=== PATIENT | male | born 1945 | race Caucasian/White ===

== ENCOUNTER 2016-05-10 15:47 | Emergency (ER) | payer MEDICARE ==
[2016-05-10 16:04] VITALS: TEMP 98; BMI 23.7
[2016-05-10 16:46] LABS: AUTOMATED EOSINOPHIL 3.5 % (0-5); AUTOMATED LYMPH 25.6 % (17-44); AUTOMATED MONOCYTE 8.9 % (3-10); MPV 7.8 fL (7.4-10.4)
[2016-05-10 16:53] LABS: BLOOD UREA NITROGEN 25 MG/DL (9-20); CALC CORRECTED 9.9 MG/DL (8.4-10.2); CALCIUM 8.6 MG/DL (8.4-10.2); CALCULATED OSMOLALITY 268 MOs/Kg (270-290); CHLORIDE 103 mEq/L (98-107); GLUCOSE 127 mg/dL (70-99); SODIUM LEVEL 136 mEq/L (137-146); TOTAL PROTEIN 5.6 G/DL (6.3-8.2)
--- NOTE | 2016-05-10 17:50 | DIRPT ---
CLINICAL DATA: 70-year-old male with lumbar back pain since March. Difficulty walking. Initial encounter. Current history of cirrhosis. EXAM: MRI LUMBAR SPINE WITHOUT CONTRAST TECHNIQUE: Multiplanar, multisequence MR imaging of the lumbar spine was performed. No intravenous contrast was administered. COMPARISON: Chest CTA 10/11/2015. CT Abdomen and Pelvis 04/11/2014. FINDINGS: Low signal to noise on today's lumbar images despite repeated imaging attempts, this might be related to a moderate or large volume of abdominal ascites. There are large caliber para renal varices demonstrated in the visualized retroperitoneum. Normal lumbar segmentation. There is a mild compression fracture of L4 with superior endplate deformity and associated superior endplate marrow edema (series 9, image 12). This is new since 2015. No retropulsed bone or complicating features. There is a mild inferior endplate compression deformity of L2 which is new since 2015, but appears chronic without convincing marrow edema. The remaining lumbar levels appear intact. Visible sacrum intact. Visualized lower thoracic spinal cord is normal with conus medularis at L1. No lumbar spinal stenosis. Mild for age lumbar spine degeneration. There is moderate severe facet hypertrophy with trace facet joint fluid at L4-L5 and L5-S1. IMPRESSION: 1. Acute to subacute mild L4 compression fracture. No retropulsed bone or complicating features. 2. Mild chronic L2 compression fracture. 3. Largely mild for age lumbar spine degeneration with no spinal stenosis. There is moderate to severe facet arthropathy at L4-L5 and L5-S1. 4. 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 Electronically Signed By: Maria Dumont M.D. On: 05/10/2016 17:48
--- NOTE | 2016-05-10 18:51 | EDPRACDOC ---
- General Information Chief Complaint: Back Pain Stated Complaint: LOWER BACK PAIN NO RECENT INJURY Time Seen by Provider: 05/10/16 16:11 Information Source: Patient Home Medications: Home Medications Lactulose 20 gm PO DAILY 30 Days 10/11/15 Pantoprazole Sodium [Protonix] 40 mg PO DAILY #30 tab 10/11/15 Furosemide [Lasix] 40 mg PO DAILY 05/10/16 Lorazepam [Ativan] 1 mg PO BID PRN 05/10/16 Oxycodone Immediate Release [Oxycodone Immediate Release (OxyIR)] 5 - 10 mg PO Q4H PRN #30 tab 05/10/16 Propranolol HCl 20 mg PO BID 05/10/16 Spironolactone [Aldactone] 100 mg PO DAILY 05/10/16 Allergies/Adverse Reactions: Allergies Allergy/AdvReac Type Severity Reaction Status Date / Time Sulfa (Sulfonamide Allergy Hives* Verified 10/11/15 16:10 Antibiotics) - History of Present Illness Onset: ONE MONTH Pain Location: Reports: Lumbar Pain Radiates To: Reports: Buttock Pain Caused By: Reports: Bending, Spontaneous, Twisting Circumstances: Reports: Other Relevant History: Reports: Arthiritis. Denies: Abdominal aneurysm, Chronic back pain, Gallbladder disease, Pancreatitis, Pyelonephritis, Urolithiasis Pain Severity: Reports: Moderate Pain Quality: Reports: Aching, Sharp Worsened By: Reports: Movement, Twisting, Walking Associated Signs and Symptoms: Denies: Abdominal Pain, Dysuria, Hematuria, Nausea, Vomiting Other History: HISTORY OF CIRRHOSIS WITH ASCITES STATUS POST PARACENTESIS APPROXIMATELY 1 MONTH AGO. ED Past Medical History - History Reviewed Yes Nurses notes reviewed and agree except as marked - Patient Medical History GI/ History: Reports: Liver Failure (CIRRHOSIS WITH ASCITES) - Social Medical History Smoking Status: Light tobacco smoker (less than 5/day) Social History: Reports: Marijuana Use ETOH: Alcoholic Substance Abuse: None Lives With: Family Lives In: Home EDM Review of Systems - Review of Systems ROS Negative Except as Marked: Yes All systems reviewed and were negative except as marked - Physical Exam Constitutional: No apparent distress, Alert, Distress (UNCOMFORTABLE) Oriented to: Time, Person, Place Last recorded Vital Signs: Last Vital Signs Temp 98 F 05/10/16 15:57 Pulse 54 L 05/10/16 18:05 Resp 18 05/10/16 18:05 BP 130/63 05/10/16 18:05 Pulse Ox 95 05/10/16 18:05 Oxygen Pulse Oxygen Saturation 95 O2 Device Room Air Oxygen Flow Rate Fraction of Inspired Oxygen ( FIO2) - HEENT Head: Normal Eye Exam: Scleral Icterus. negative: Pale Conjunctiva Oropharynx: Normal. negative: Membranes Dry - Respiratory/Cardiovascular Respiratory: Normal - CTA Cardiovascular: Normal - GI Palpation: Fluid Wave. negative: Mass, Tense Tenderness: Non tender. negative: Guarding, Rebound, Rigidity Echevarria's Sign: Negative ED Back Exam - Neurologic Motor Deficit: None Reflexes: Normal - Musculoskeletal Cervical: Normal Thoracic: Normal Lumbar: Normal Midline: Normal Paraspinous: Normal Straight Leg Raise: Negative Pelvis: Normal - Results 05/10/16 16:37 05/10/16 16:37 WBC 5.9 xk/uL (3.8-10.8) 05/10/16 16:37 RBC 2.71 xM/uL (4.70-6.10) L 05/10/16 16:37 Hgb 9.9 g/dL (14.0-18.0) L 05/10/16 16:37 Hct 28.0 % (42-52) L 05/10/16 16:37 MCV 103 fL (80-94) H 05/10/16 16:37 MCH 36.6 pg (27-32) H 05/10/16 16:37 MCHC 35.4 g/dl (33-36) 05/10/16 16:37 RDW 16.4 % (11.5-14.5) H 05/10/16 16:37 Plt Count 85 xk/uL (130-400) L 05/10/16 16:37 MPV 7.8 fL (7.4-10.4) 05/10/16 16:37 Neut % (Auto) 61.0 % (45-76) 05/10/16 16:37 Lymph % (Auto) 25.6 % (17-44) 05/10/16 16:37 Milam % (Auto) 8.9 % (3-10) 05/10/16 16:37 Eos % (Auto) 3.5 % (0-5) 05/10/16 16:37 Baso % (Auto) 1.0 % (0-2) 05/10/16 16:37 Absolute Neuts (auto) 3.60 xk/uL (1.7-8.2) 05/10/16 16:37 Absolute Lymphs (auto) 1.48 xk/uL (0.65-4.75) 05/10/16 16:37 Sodium 136 mEq/L (137-146) L 05/10/16 16:37 Potassium 3.7 mEq/L (3.5-5.1) 05/10/16 16:37 Chloride 103 mEq/L (98-107) 05/10/16 16:37 Carbon Dioxide 28 mMOL/L (22-33) 05/10/16 16:37 Anion Gap 9 mEq/L (8-16) 05/10/16 16:37 BUN 25 MG/DL (9-20) H 05/10/16 16:37 Creatinine 0.70 MG/DL (0.66-1.25) 05/10/16 16:37 Estimated GFR (MDRD) > 60 mL/min (>=60) 05/10/16 16:37 Glucose 127 mg/dL (70-99) H 05/10/16 16:37 Calculated Osmolality 268 MOs/Kg (270-290) L 05/10/16 16:37 Calcium 8.6 MG/DL (8.4-10.2) 05/10/16 16:37 Corrected Calcium 9.9 MG/DL (8.4-10.2) 05/10/16 16:37 Total Bilirubin 14.3 MG/DL (0.2-1.3) H 05/10/16 16:37 AST 38 IU/L (17-59) 05/10/16 16:37 ALT 31 IU/L (21-72) 05/10/16 16:37 Alkaline Phosphatase 154 IU/L (50-160) 05/10/16 16:37 Total Protein 5.6 G/DL (6.3-8.2) L 05/10/16 16:37 Albumin 2.7 G/DL (3.5-5.0) L 05/10/16 16:37 Lab Results 05/10/16 05/10/16 16:37 16:37 WBC 5.9 RBC 2.71 L Hgb 9.9 L Hct 28.0 L MCV 103 H MCH 36.6 H MCHC 35.4 RDW 16.4 H Plt Count 85 L MPV 7.8 Neut % (Auto) 61.0 Lymph % (Auto) 25.6 Milam % (Auto) 8.9 Eos % (Auto) 3.5 Baso % (Auto) 1.0 Absolute Neuts (auto) 3.60 Absolute Lymphs (auto) 1.48 Sodium 136 L Potassium 3.7 Chloride 103 Carbon Dioxide 28 Anion Gap 9 BUN 25 H Creatinine 0.70 Estimated GFR (MDRD) > 60 Glucose 127 H Calculated Osmolality 268 L Calcium 8.6 Corrected Calcium 9.9 Total Bilirubin 14.3 H AST 38 ALT 31 Alkaline Phosphatase 154 Total Protein 5.6 L Albumin 2.7 L - Diagnostic Imaging L-Spine Image interpreted by: Radiologist Patient Name: RICHIE MILLARD LOC: ED : 1945 AGE: 70 Order Date:05/10/16 Date of Service:06/21 Report # [id number] Ord Physician: Evelyn Hernandez MD Exam # [id number] Emergency Physician: Evelyn Hernandez MD Exam(s): [id number] MRI/MRI LUMBAR SPINE W/O CM CLINICAL DATA: 70-year-old male with lumbar back pain since March. Difficulty walking. Initial encounter. Current history of cirrhosis. EXAM: MRI LUMBAR SPINE WITHOUT CONTRAST TECHNIQUE: Multiplanar, multisequence MR imaging of the lumbar spine was performed. No intravenous contrast was administered. COMPARISON: Chest CTA 10/11/2015. CT Abdomen and Pelvis 04/11/2014. FINDINGS: Low signal to noise on today's lumbar images despite repeated imaging attempts, this might be related to a moderate or large volume of abdominal ascites. There are large caliber para renal varices demonstrated in the visualized retroperitoneum. Normal lumbar segmentation. There is a mild compression fracture of L4 with superior endplate deformity and associated superior endplate marrow edema (series 9, image 12). This is new since 2015. No retropulsed bone or complicating features. There is a mild inferior endplate compression deformity of L2 which is new since 2015, but appears chronic without convincing marrow edema. The remaining lumbar levels appear intact. Visible sacrum intact. Visualized lower thoracic spinal cord is normal with conus medularis at L1. No lumbar spinal stenosis. Mild for age lumbar spine degeneration. There is moderate severe facet hypertrophy with trace facet joint fluid at L4-L5 and L5-S1. IMPRESSION: 1. Acute to subacute mild L4 compression fracture. No retropulsed bone or complicating features. 2. Mild chronic L2 compression fracture. 3. Largely mild for age lumbar spine degeneration with no spinal stenosis. There is moderate to severe facet arthropathy at L4-L5 and L5-S1. 4. 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 Electronically Signed By: Maria Dumont M.D. On: 05/10/2016 17:48 Electronically Signed By: Maria Dumont III, MD Electronically Signed Date/Time: 750 Dictate Date/Time: 05/10/161742 Technologist: Tosin Knox Transcribed By: Peri Transcribed Date/Time: 05/10/168 - Departure Disposition: Home Condition: Good Final Diagnosis: Compression fracture of L4 lumbar vertebra Instructions: Vertebral Compression Fracture (ED), Narcotic Pain Management (ED ) Education/Counseling Given To: Patient Education/Counseling Given Regarding: Diagnosis, Treatment, Prognosis Referrals: Arnold Mccallum MD [Primary Care Provider] - One Week Prescriptions: New Oxycodone Immediate Release [Oxycodone Immediate Release (OxyIR)] 5 - 10 mg PO Q4H PRN #30 tab PRN Reason: Pain No Action Pantoprazole Sodium [Protonix] 40 mg PO DAILY #30 tab Lactulose 20 gm PO DAILY 30 Days Lorazepam [Ativan] 1 mg PO BID PRN PRN Reason: Anxiety Propranolol HCl 20 mg PO BID Furosemide [Lasix] 40 mg PO DAILY Spironolactone [Aldactone] 100 mg PO DAILY Additional Instructions: FOLLOW UP WITH YOUR LIVER DOCTOR NEXT WEEK.
[2016-05-10 19:20] VITALS: BP 125/64; PULSE 60
[2016-05-10] MEDS ORDERED: OXYCODONE HCL 5 MG TABLET PO ONE (19:36)
== END 2016-05-10 19:45 | disposition home or self-care (01) ==
LOC: ED 15:47
DX: M48.56XA Collapsed vertebra, not elsewhere classified, lumbar region, initial encounter for fracture (principal)
CPT/HCPCS: 36415; 72148; 80053; 85025; 99283; A9270; J3490